=== PATIENT | female | born 1955 | race Hispanic/Latino ===

== ENCOUNTER 2022-04-29 13:00 | Emergency (ER) | payer MEDICARE, OTHER ==
[~2022-04-29] VITALS: Ht 147.3 cm; Wt 47.6 kg
[2022-04-29 13:27] LABS: BASOPHILS % (AUTO) 0.8 % (0.0-5.0); EOSINOPHILS % (AUTO) 3.1 % (0.0-8.0); HEMATOCRIT 35.8 % (36-48); MEAN CORPUSCULAR HEMOGLOBIN 21.7 pg (27.0-33.0); MEAN CORPUSCULAR HGB CONC 29.9 g/dL (32.0-36.0); MEAN CORPUSCULAR VOLUME 72.8 fL (79-99); MONOCYTES % (AUTO) 7.6 % (3.0-13.0); NEUTROPHILS % (AUTO) 69.9 % (40.0-77.0); PLATELET COUNT (AUTO) 80 K/uL (130-400); RED BLOOD CELL COUNT(AUTO) 4.92 MIL/uL (4.00-5.50); RED CELL DISTRIBUTION WIDTH 16.4 % (11.0-15.5); WHITE BLOOD COUNT (AUTO) 3.6 K/uL (4.8-10.8)
[2022-04-29 13:35] LABS: CARBON DIOXIDE 26 mmol/L (21-32); CHLORIDE 100 mmol/L (101-111); CREATININE 0.8 mg/dL (0.5-1.5); GLOMERULAR FILTR. RATE CALC 76 mL/min (>60); GLUCOSE,RANDOM 393 mg/dL (70-105); POTASSIUM 4.4 mmol/L (3.5-5.1); SODIUM SERUM 134 mmol/L (136-145); UREA NITROGEN, BLOOD 15 mg/dL (7-18)
[2022-04-29 13:36] LABS: INR 1.05 (0.85-1.15); PROTHROMBIN TIME 11.4 SEC (9.6-11.6)
[2022-04-29 13:37] LABS: PARTIAL THROMBOPLASTIN TIME 25.7 SEC (26.3-35.5)
[2022-04-29 13:39] LABS: ALANINE AMINOTRANSFERASE 35 U/L (12-78); ALBUMIN 2.8 g/dL (3.5-5.0); ASPARTATE AMINOTRANSFERASE 33 U/L (10-37); CREATINE KINASE, TOTAL 71 U/L (21-232); LDL DIRECT 122 mg/dL (0-99); TOTAL PROTEIN, SERUM 6.7 g/dL (6.0-8.3)
[2022-04-29 13:43] LABS: AMMONIA < 10 umol/L (11-32)
[2022-04-29 13:46] LABS: B-TYPE NATRIURETIC PEPTIDE 57 pg/mL (0-100)
[2022-04-29] MEDS ORDERED: IOHEXOL 350 MG/ML 100ML INFUS..BTL IV ONE (16:00)
[2022-04-29 18:41] LABS: APPEARANCE,URINE CLEAR (CLEAR); BILIRUBIN,URINE NEGATIVE (NEGATIVE); COLOR,URINE LIGHT-YELLOW (YELLOW); GLUCOSE, URINE (UA) >=1000 mg/dL (NEGATIVE); KETONES,URINE 10 mg/dL (NEGATIVE); LEUKOCYTE ESTERASE ,URINE NEGATIVE Leu/uL (NEGATIVE); NITRATE,URINE NEGATIVE (NEGATIVE); OCCULT BLOOD,URINE NEGATIVE (NEGATIVE); PH,URINE 7.5 (5.0-8.0); PROTEIN,URINE 20 mg/dL (NEGATIVE); UROBILINOGEN,URINE 0.2 mg/dL (0.2-1.0)
[2022-04-29 18:46] LABS: BACTERIA,URINE RARE /HPF (None Seen); MUCUS,URINE RARE LPF (None Seen); RBC,URINE 0-1 /HPF (0-1); SQUAMOUS EPITHELIAL CELL,UR FEW /HPF (0-2); WBC,URINE 0-1 /HPF (0-1)
[2022-04-29 19:14] LABS: AMPHET/METH SCREEN,URINE NEGATIVE (NEGATIVE); BARBITURATE SCREEN, URINE NEGATIVE (NEGATIVE); BENZODIAZEPINES SCREEN,URINE NEGATIVE (NEGATIVE); CANNABINOID SCREEN,URINE NEGATIVE (NEGATIVE); COCAINE SCREEN,URINE NEGATIVE (NEGATIVE); PHENCYCLIDINE SCREEN,URINE NEGATIVE (NEGATIVE)
[2022-04-29] MEDS ORDERED: LORAZEPAM 2 MG/ML 1 ML VIAL ONE (20:06)
[2022-04-29] MEDS ORDERED: LORAZEPAM 2 MG/ML 1 ML VIAL IM ONE (20:30)
[2022-04-30 02:28] VITALS: BP 109/54
== END 2022-04-30 02:57 | disposition short-term general hospital (02) ==
LOC: EDH 13:00
DX: R20.2 Paresthesia of skin (principal); Z20.822 Contact with and (suspected) exposure to COVID-19; E11.9 Type 2 diabetes mellitus without complications; I10 Essential (primary) hypertension; Z85.05 Personal history of malignant neoplasm of liver
CPT/HCPCS: 99285; 70496; 70553; 71045; 87635; 82550; 83721; 84484; 80053; 83880; 80305; 82140; 85025; 85610; 85730; 82948; 36415; 70498; 93005; 96372; 81001; 70450; C9803; J2060; Q9967

== ENCOUNTER 2022-12-30 20:26 | Emergency (ER) | payer MEDICARE, OTHER ==
[~2022-12-30] VITALS: Ht 147.3 cm; Wt 50.8 kg
[2022-12-31] MEDS ORDERED: PROPOFOL 10 MG/ML 20ML VIAL IV SCH
[2022-12-31] MEDS ORDERED: HYDROMORPHONE 1 MG INJ IVP ONE
[2022-12-31] MEDS ORDERED: IBUP-1493 PO (03:04)
[2022-12-31 03:44] VITALS: BP 138/74
== END 2022-12-31 03:38 | disposition home or self-care (01) ==
LOC: EDH 20:26
DX: S52.592A Other fractures of lower end of left radius, initial encounter for closed fracture (principal); M79.671 Pain in right foot; M79.642 Pain in left hand; I10 Essential (primary) hypertension; E11.9 Type 2 diabetes mellitus without complications; Z98.890 Other specified postprocedural states; Z83.3 Family history of diabetes mellitus; W18.39XA Other fall on same level, initial encounter; Y93.K1 Activity, walking an animal; Y92.89 Other specified places as the place of occurrence of the external cause; Y99.8 Other external cause status
CPT/HCPCS: 99285; 71045; 73630; 73130; 73090; 73060; 73110; 72190; 25675; 73100; J1170; J2704; 29105; 96374; 96375